=== PATIENT | female | born 1955 | race African-American/Black ===

== ENCOUNTER 2017-05-21 12:56 | Emergency (ER) | payer MEDICAID ==
[~2017-05-21] VITALS: Ht 162.6 cm; Wt 91.0 kg
[2017-05-21 14:18] LABS: BASOPHILS % 0.5 % (0.0-2.0); HEMATOCRIT. 36.6 % (36.0-48.0); HEMOGLOBIN. 11.8 g/dL (12.0-16.0); LYMPHOCYTES % 30.8 % (20.0-50.0); MEAN CORPUSCULAR HEMOGLOBIN 23.9 pg (28.0-32.0); MEAN CORPUSCULAR VOLUME 73.8 fL (81.0-99.0); MEAN PLATELET VOLUME 8.9 fl (7.4-10.4); MONOCYTES % 8.6 % (2.0-8.0); NEUTROPHILS % 58.1 % (40.0-76.0); PLATELET 185 x1000/uL (130-400); RED BLOOD CELL COUNT 4.96 mill/uL (4.2-5.4); RED CELL DISTRIBUTION WIDTH 14.4 % (11.6-14.6)
[2017-05-21 14:22] LABS: CHLORIDE 104 mEq/L (98-107)
[2017-05-21 14:24] LABS: PROTHROMBIN TIME 10.7 sec (9.4-11.6)
[2017-05-21] MEDS ORDERED: NITROGLYCERIN OINT 1GM/INCH UDPKT TD STA (14:27)
[2017-05-21] MEDS ORDERED: MORPHINE SULFATE 10 MG/ML CPJ IV ONE (14:30)
[2017-05-21] MEDS ORDERED: SODIUM CHLORIDE 0.9% 500 ML IV ONE (14:30)
[2017-05-21 15:18] LABS: TROPONIN I < 0.02 ng/mL (0.00-0.04)
[2017-05-21] MEDS ORDERED: KETOROLAC 15MG/ML VIAL IV ONE (16:00)
[2017-05-21 19:00] VITALS: BP 163/93
== END 2017-05-21 19:15 | disposition home or self-care (01) ==
LOC: ER 13:15
DX: I10 Essential (primary) hypertension (principal)
CPT/HCPCS: 36415; 71045; 80053; 83690; 84484; 85025; 85610; 93005; 96361; 96374; 99285; J1885; J2270; J7040; Z7610